=== PATIENT | female | born 1930 | race Caucasian/White ===

== ENCOUNTER 2017-11-02 15:53 | Emergency (ER) | payer MEDICARE, OTHER ==
[~2017-11-02 15:53] MED LIST: ISOVUE-370 76%-LOCM 1 ML ONE
[2017-11-02] MEDS ORDERED: Metoclopramide HCl 10 MG/2 ML VIAL ONE (16:38)
[2017-11-02] MEDS ORDERED: Acetaminophen 500 MG TAB ONE (16:38)
[2017-11-02 16:43] LABS: #Lymphocytes 0.8 thou/uL (1.20-3.40); #Monocytes 0.4 thou/uL (0.11-0.59); #Neutrophils 6.6 thou/uL (1.40-6.50); %Basophils 0.2 % (0.0-1.0); %Eosinophils 0.1 % (0.0-10.0); %Monocytes 4.6 % (0.0-10.0); %Neutrophils 85.1 % (42.0-75.0); Hemoglobin 12.4 g/dL (12.0-16.0); Mean Corpuscular Hemoglobin 33.5 pg (27.0-31.0); Mean Corpuscular Volume 95.8 fl (81.0-99.0); Mean Platelet Volume 8.8 fL (7.4-10.4); Platelet Count 141 thou/uL (130-400); RBC Distribution Width 17.2 % (11.5-14.5); White Blood Cell (WBC) Count 7.7 thou/uL (4.8-10.8)
[2017-11-02 17:04] LABS: ALT (SGPT) 21 U/L (8-55); AST (SGOT) 38 U/L (5-34); Albumin 4.1 g/dL (3.4-4.8); Alkaline Phosphatase 60 U/L (40-150); Anion Gap 13 mmol/L (10-20); BUN (Urea Nitrogen) 15 mg/dL (9.8-20.1); Calc. Creatinine Clearance 0 mL/min (70-130); Calcium 9.2 mg/dL (7.8-10.44); Carbon Dioxide 27 mmol/L (23-31); Chloride 93 mmol/L (98-107); Estimated GFR-MDRD 78; Globulin 2.7 g/dL (2.4-3.5); Glucose 119 mg/dL (83-110); Protein, Total 6.8 g/dL (6.0-8.3); Sodium 130 mmol/L (136-145)
[2017-11-02 17:07] LABS: Potassium 2.7 mmol/L (3.5-5.1); Troponin I 0.054 ng/mL (< 0.028)
--- NOTE | 2017-11-02 17:15 | RAD ---
SINGLE VIEW OF THE CHEST: Comparison: 05-20-13 History: Altered mental status, apoxia. FINDINGS: Single view of the chest shows a normal sized cardiomediastinal silhouette with atherosclerotic calci fications in the aorta. There is no evidence of consolidation, mass or pleural effusion. Degenerative changes are seen in the spine and shoulders. IMPRESSION: 1. No evidence of acute cardiopulmonary disease. 2. Atherosclerotic disease. POS: [facility]
[2017-11-02 17:31] LABS: Bilirubin Negative (Negative); Blood, Urine Large (Negative); Clarity CLEAR (Clear); Glucose, Urine (Dipstick) Negative (Negative); Leukocyte Negative (Negative); Nitrite Negative (Negative); Protein, Urine (Dipstick) 100 mg/dL (Neg-Trace); Specific Gravity, Urine 1.023 (1.002-1.036)
[2017-11-02 17:32] LABS: Bacteria/HPF None Seen HPF (None Seen); Pathc Cast-AUWi Flag 0.94 (0-2.49); RBC/HPF GREATER THAN 50-TNTC HPF (0-3); Squamous Epithelial 0-3 HPF (0-3)
[2017-11-02 17:39] LABS: Hyaline Casts/LPF 0-3 HYALINE CAST LPF (0-3 Hyaline)
[2017-11-02 17:46] LABS: Actual Bicarbonate (HCO3a) 25.5 mEq/L (22-26); CO2 Tension 40.1 mmHg (35.0-45.0); O2 Tension (PaO2) 57.8 mmHg (80.0-100.0); pH, Arterial 7.42 (7.35-7.45)
[2017-11-02 17:47] LABS: ALV-art Gradient 40.755 (0-20); Analyzer IN Cardio ER; Calcium, Ionized 1.1 mmol/L (1.12-1.30); Hematocrit-ABG 32.5 % (36.0-47.0); Hemoglobin (Hb) 9.8 g/dL (12.0-16.0); Puncture Site RRA
[2017-11-02 19:34] LABS: CKMB 1.2 ng/mL (0-6.6); Troponin I 0.055 ng/mL (< 0.028)
--- NOTE | 2017-11-02 19:54 | CT ---
CT BRAIN WITHOUT CONTRAST: Comparison: MRI brain, 10-04-14 History: Altered mental status, hypoxia. Technique: Multiple contiguous axial images were obtained in a CT of the brain without contrast. FINDINGS: There are scattered hypodensities in the subcortical and periventricular white matter, likely seconda ry to small vessel ischemic disease. No enlarged confluent infarction is seen. There is no evidence o f hydrocephalus, intracranial hemorrhage, or extraaxial fluid collections. The calvarium and overlying soft tissues are unremarkable. The visualized paranasal sinuses and masto id air cells are well aerated. IMPRESSION: No evidence of acute intracranial abnormality. POS: [facility]
[2017-11-02] MEDS ORDERED: methylPREDNISolone Sod Succ/PF 125 MG/2 ML VIAL ONE (19:58)
--- NOTE | 2017-11-02 20:07 | CT ---
CTA OF THE CHEST: Comparison: Chest x-ray, 11-02-17. History: Altered mental status, low oxygen saturation. On oxygen. Technique: Multiple contiguous axial images were obtained in a CTA of the chest with contrast per pul monary embolism protocol. 3D oblique MIP reformats and direct coronal reformats were performed. FINDINGS: The pulmonary arteries are well opacified without filling defects to suggest pulmonary emboli. The he art is upper limits of normal in size. No hilar or mediastinal lymphadenopathy are seen. The knowles of the trachea and main stem bronchi are calcified. There is an infiltrate in the right lower lobe. A small amount of fluid is seen in the right lower lo be bronchi and bronchioles. Atelectasis is seen in the left lung base and there is also fluid in the bronchi and bronchioles in the left lower lobe. No pleural effusion or pneumothorax are seen. Degenerative changes are seen in the spine. The visualized subdiaphragmatic structures are unremarkab le. The chest wall soft tissues are unremarkable. IMPRESSION: 1. No evidence of pulmonary thromboembolism. 2. There appears to be an infiltrate in the right costophrenic angle which is not appreciated on ches t x-ray. Alternative, this could represent atelectasis in the right lung base. 3. There is fluid seen in the bronchi and bronchials to the bilateral lower lobes. This may represent mucus. POS: [facility]
--- NOTE | 2017-12-06 18:18 | EKG ---
Test Reason : Blood Pressure : / mmHG Vent. Rate : 064 BPM Atrial Rate : 064 BPM P-R Int : 206 ms QRS Dur : 092 ms QT Int : 438 ms P-R-T Axes : 086 -14 036 degrees QTc Int : 451 ms Normal sinus rhythm Normal ECG Confirmed by DEANNA MCCULLOUGH ([id number]), acquisition editor SABRINA TABOR ([id number] on 12/06/2017 6:18:16 PM Referred By: Confirmed By:DEANNA MCCULLOUGH
== END 2017-11-02 21:55 | disposition home or self-care (01) ==
LOC: ERS 15:53
DX: J18.9 Pneumonia, unspecified organism (principal); I10 Essential (primary) hypertension; E78.00 Pure hypercholesterolemia, unspecified
CPT/HCPCS: 36415; 70450; 71045; 71275; 80053; 81003; 81015; 82553; 82805; 84484; 85025; 87086; 93005; 96361; 96374; 96375; J2765; J2930

== ENCOUNTER 2019-04-27 10:25 | Outpatient (CLI) | payer MEDICARE ==
--- NOTE | 2019-04-27 11:31 | CT ---
CT BRAIN WITH AND WITHOUT IV CONTRAST: HISTORY: Cognitive disorder. Memory problems. Mild cognitive impairment, so stated. FINDINGS: No evidence of infarct, hemorrhage, mass, midline shift, or abnormal extraaxial fluid collections is seen. The ventricular size is appropriate, and the basilar cisterns are patent. No abnormal post co ntrast enhancement is seen. The bony calvarium is intact. The visualized paranasal sinuses and mast oid air cells are well aerated. IMPRESSION: No CT evidence of acute intracranial process or mass. POS: [facility]
== END 2019-04-27 10:26 | disposition home or self-care (01) ==
LOC: BICCT 10:25
PROVIDERS: ATTEND Psychiatry & Neurology Neurology
DX: G31.84 Mild cognitive impairment of uncertain or unknown etiology (principal)
CPT/HCPCS: 70470; 82565